=== PATIENT | female | born 1955 | race Caucasian/White ===

== ENCOUNTER 2018-08-30 07:09 | Day surgery (SDC) | payer BC ==
[~2018-08-30 07:09] MED LIST: CEFAZOLIN 2 Gram 2 GM/50 ML BAG IVPB ONE; CELECOXIB 100 MG CAPSULE PO ONE; FAMOTIDINE 20MG TABLET PO ONE; MECLIZINE 25 MG TABLET PO ONE; METOCLOPRAMIDE 10 MG TABLET PO ONE; VANCOMYCIN HCL 1,000 MG in DEXTROSE 5 % IN WATER 250 ML IVPB ONE
[2018-08-30] MEDS ORDERED: DEXAMETHASONE 4 MG/ML 1ML VIAL IVP ONE (07:10)
[2018-08-30] MEDS ORDERED: **ER** KETAMINE HCL 500MG/10ML VIAL IV ONE (07:10)
[2018-08-30] MEDS ORDERED: MIDAZOLAM HCL 2MG/2ML VIAL IV ONE (07:10)
[2018-08-30] MEDS ORDERED: LIDOCAINE 2% MDV (20MG/ML) 20ML VIAL IV ONE (07:10)
[2018-08-30] MEDS ORDERED: BUPIVACAINE 0.5% W/EPI MPF 30 ML VIAL IVP ONE (07:10)
[2018-08-30] MEDS ORDERED: ROPIVACAINE HCL (NAROPIN) /PF 5MG/ML 20ML VIAL IV ONE (07:10)
[2018-08-30] MEDS ORDERED: PROPOFOL 10 MG/ML VIAL IV ONE (07:10)
[2018-08-30] MEDS ORDERED: KETOROLAC 30 MG/ML VIAL IVP ONE (07:10)
[2018-08-30 07:58] LABS: ABO GROUP A; RH TYPE NEGATIVE
[2018-08-30 07:59] LABS: ANTIBODY SCREEN NEGATIVE (NEGATIVE)
[2018-08-30] MEDS ORDERED: ACETAMINOPHEN W/ CODEINE 300MG/60MG TABLET PO PRN ×2 (11:13)
[2018-08-30] MEDS ORDERED: BISACODYL 10 MG SUPP RC PRN (11:13)
[2018-08-30] MEDS ORDERED: NALOXONE 0.4 MG/1 ML VIAL IVP PRN (11:13)
[2018-08-30] MEDS ORDERED: ACETAMINOPHEN 325 MG TAB PO PRN (11:13)
[2018-08-30] MEDS ORDERED: MAGNESIUM HYDROXIDE 30 ML UDC PO PRN (11:13)
[2018-08-30] MEDS ORDERED: AL HYDROX/MAG HYDROX 30ML UD PO PRN (11:13)
[2018-08-30] MEDS ORDERED: DIPHENHYDRAMINE HCL 25 MG CAPSULE PO PRN (11:13)
[2018-08-30] MEDS ORDERED: ZOLPIDEM TARTRATE 5 MG TABLET PO PRN (11:13)
[2018-08-30] MEDS ORDERED: KETOROLAC 30 MG/ML VIAL IVP PRN ×2 (11:13)
[2018-08-30] MEDS ORDERED: TRAMADOL HCL 50 MG TABLET PO PRN (11:13)
[2018-08-30] MEDS: POTASSIUM CHLORIDE/D5-0.9%NACL 20 MEQ/1,000 ML BAG IV SCH ×2 (14:14→23:09)
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
[2018-08-30] MEDS: HYDROCODONE/APAP 10/325 TABLET PO PRN ×3 (15:53→23:08)
[2018-08-30] MEDS: CEFAZOLIN 2 Gram 2 GM/50 ML BAG IVPB SCH (17:34)
[2018-08-30] MEDS: DOCUSATE SODIUM 100 MG CAPSULE PO SCH (21:27)
[2018-08-30] MEDS: BUPROPION HCL 150 MG TAB.SR.12H PO SCH (21:27)
[2018-08-31] MEDS: CEFAZOLIN 2 Gram 2 GM/50 ML BAG IVPB SCH ×2 (00:56→09:25)
[2018-08-31] MEDS: HYDROCODONE/APAP 10/325 TABLET PO PRN ×3 (04:01→11:41)
[2018-08-31] MEDS: PANTOPRAZOLE SODIUM 40 MG TABLET PO SCH (06:04)
[2018-08-31] MEDS: LEVOTHYROXINE SODIUM 88 MCG TABLET PO SCH (06:04)
[2018-08-31 07:05] LABS: HEMATOCRIT 31.9 % (35.0-47.0); HEMOGLOBIN 10.1 gm/dl (11.6-16.0)
[2018-08-31 07:18] LABS: BLOOD UREA NITROGEN 13 mg/dL (8-23); CREATININE 0.6 mg/dL (0.5-0.9); EST GLOMERULAR FILTRATION RATE > 60 mL/min; GLUCOSE,RANDOM 118 mg/dL (74-109)
[2018-08-31] MEDS: POTASSIUM CHLORIDE/D5-0.9%NACL 20 MEQ/1,000 ML BAG IV SCH ×2 (08:45→17:35)
[2018-08-31] MEDS: ASCORBIC ACID 500 MG TAB PO SCH (09:23)
[2018-08-31] MEDS: DOCUSATE SODIUM 100 MG CAPSULE PO SCH ×2 (09:23→22:09)
[2018-08-31] MEDS: FERROUS SULFATE 325 MG TAB PO SCH (09:24)
[2018-08-31] MEDS: CYANOCOBALAMIN (VITAMIN B-12) 100 MCG TABLET PO SCH (09:24)
[2018-08-31] MEDS: BUPROPION HCL 150 MG TAB.SR.12H PO SCH ×2 (09:24→22:10)
[2018-08-31] MEDS: HYDROCHLOROTHIAZIDE 25 MG TABLET PO SCH (09:24)
[2018-08-31] MEDS: FOLIC ACID 1 MG TABLET PO SCH (09:24)
[2018-08-31] MEDS: MULTIVITAMINS/MINERALS TABLET PO SCH (09:24)
[2018-08-31] MEDS ORDERED: RIVAROXABAN 10 MG TABLET PO SCH (10:00)
[2018-08-31] MEDS: ONDANSETRON HCL IV 4 MG/2 ML VIAL IVP PRN ×2 (11:34→17:41)
[2018-08-31] MEDS ORDERED: POTASSIUM CHLORIDE 20 MEQ TABLET PO ONE (13:20)
--- NOTE | 2018-08-31 14:12 | Physical Therapy Tx Note ---
Physical Therapy Tx Note - Treatment Note Physical Therapy Tx Note: Detail (The patient was not seen this pm secondary to medical status. Will hold PT until patient is medicallly cleared.) Physical Therapy Problem List: Detail (1) Decreased R knee AROM 2) Decreased R LE strength) Physical Therapy Goals: 1) The patient will ambulate independently on a flight of stairs with use of railings. 2) The patient will be independent with bed mobility. 3) The patient will be independent with TKA HEP Physical Therapy Plan: PT 1-2 visits for bed mobility, gait training on stairs and instruction in HEP.
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
[2018-08-31] MEDS: HYDROMORPHONE HCL 2 MG/ML VIAL IM PRN (16:02)
[2018-08-31] MEDS: CEPHALEXIN 500 MG CAPSULE PO SCH ×2 (16:03→22:10)
[2018-08-31] MEDS ORDERED: RIVAROXABAN 15 MG TABLET PO ONE (16:45)
[2018-09-01] MEDS: HYDROMORPHONE HCL 2 MG/ML VIAL IM PRN (02:46)
[2018-09-01] MEDS: ONDANSETRON HCL IV 4 MG/2 ML VIAL IVP PRN (02:46)
[2018-09-01] MEDS: PANTOPRAZOLE SODIUM 40 MG TABLET PO SCH (06:22)
[2018-09-01] MEDS: LEVOTHYROXINE SODIUM 88 MCG TABLET PO SCH (06:22)
[2018-09-01 06:58] LABS: HEMATOCRIT 31.8 % (35.0-47.0); HEMOGLOBIN 10.3 gm/dl (11.6-16.0)
[2018-09-01 07:09] LABS: BLOOD UREA NITROGEN 8 mg/dL (8-23); CREATININE 0.6 mg/dL (0.5-0.9); EST GLOMERULAR FILTRATION RATE > 60 mL/min; GLUCOSE,RANDOM 126 mg/dL (74-109)
--- NOTE | 2018-09-01 07:33 | US VENOUS DOPPLER REPORT ---
EXAM: VENOUS DOPPLER ULTRASOUND OF THE RIGHT LOWER EXTREMITY HISTORY: RECENT SURGERY. TECHNIQUE: Sonographic evaluation of the deep venous system of the right lower extremity was performed with the addition of Doppler, compression, and augmentation. FINDINGS: There is a deep vein thrombosis in the right external iliac vein and popliteal vein. The distal lower extremity was not imaged. IMPRESSION: ACUTE DEEP VEIN THROMBOSIS IN THE RIGHT EXTERNAL ILIAC VEIN AND THE POPLITEAL VEIN. THE REMAINDER OF THE VASCULATURE WAS NOT IMAGED. JOB NUMBER: [id number] MTDD
[2018-09-01] MEDS: ASCORBIC ACID 500 MG TAB PO SCH (09:53)
[2018-09-01] MEDS: CEPHALEXIN 500 MG CAPSULE PO SCH (09:53)
[2018-09-01] MEDS: MULTIVITAMINS/MINERALS TABLET PO SCH (09:53)
[2018-09-01] MEDS: HYDROCHLOROTHIAZIDE 25 MG TABLET PO SCH (09:53)
[2018-09-01] MEDS: FOLIC ACID 1 MG TABLET PO SCH (09:54)
[2018-09-01] MEDS: FERROUS SULFATE 325 MG TAB PO SCH (09:54)
[2018-09-01] MEDS: DOCUSATE SODIUM 100 MG CAPSULE PO SCH (09:54)
[2018-09-01] MEDS: CYANOCOBALAMIN (VITAMIN B-12) 100 MCG TABLET PO SCH (09:54)
[2018-09-01] MEDS: BUPROPION HCL 150 MG TAB.SR.12H PO SCH (09:56)
[2018-09-01] MEDS ORDERED: RIVAROXABAN 15 MG TABLET PO SCH (10:00)
--- NOTE | 2018-09-01 14:41 | Physical Therapy Tx Note ---
Physical Therapy Tx Note - Treatment Note Tolerated: Good Total Time Spent With Patient: 30 Physical Therapy Tx Note: Detail (Pt up in chair upon arrival, PolarPak on R knee. Cleared by surgeon for discharge. Sit/stand from chair to front wheeled walker independently. Ambulated w/front wheeled walker from bedside to stairwell by nrsg station (60 feet), descended and ascended 3 steps w/proper technique after verbal review, w/assist only to manage walker. Returned to room (60 feet) w/SBA assist w/front wheeled walker. Independently transferred onto bed, got into bed, and scooted up. Reviewed home exercise program. Applied PolarPak to R knee, placed call light and bedside table in reach.) Physical Therapy Problem List: Detail (1) Decreased R knee AROM 2) Decreased R LE strength) Physical Therapy Goals: 1) The patient will ambulate independently on a flight of stairs with use of railings - partially met, requires SBA/CGA. 2) The patient will be independent with bed mobility - met. 3) The patient will be independent with TKA HEP - met Prognosis: Good Physical Therapy Plan: Pt is discharged from physical therapy at this time, having met all goals sufficiently to safely go home.
--- NOTE | 2018-09-01 21:31 | Operative Note ---
DATE OF SURGERY: 08/30/2018 PREOPERATIVE DIAGNOSIS: END-STAGE ARTHROSIS OF THE RIGHT KNEE. POSTOPERATIVE DIAGNOSIS: END-STAGE ARTHROSIS OF THE RIGHT KNEE. PROCEDURE: Cemented right total knee arthroplasty with [employer]y [employer] Nephew, with a size 5 Oxinium femur Talisha II, a size 4 stemmed tibial baseplate, a 9 mm lipped highly cross-linked tibial insert, and a 35 mm all-plastic patella. STAFF SURGEON: TRUDY BARRERA M.D. ANESTHESIA: SPINAL. PREPARATION: CHLORAPREP. INDIVIDUAL CONSIDERATIONS: NONE. PROCEDURE: The patient was taken to the Operating Room and placed supine on the operating table. She had a successful induction of a spinal anesthetic. Her right lower extremity was prepped and then draped in the usual fashion. The limb was elevated, the tourniquet was inflated to 215 mmHg. The patient had a midline approach to the knee. Sharp dissection carried down through the skin and subcutaneous tissues. Small veins were coagulated with a Bovie. A medial arthrotomy was performed. The patella was everted and the knee was flexed. She had sure-aq-ltdp contact throughout with osteophytes. The fat pad was resected, the ACL was sacrificed, provisional anterior meniscectomies were performed, and the capsule was released from the medial proximal tibia. The initial femoral pilot teacher hole was then made free hand. The intramedullary femoral cutting jig was placed. It was cut in 7.0 degrees of valgus and adjusted for rotation and secured with pins for a 10 mm resection. The initial transverse cut was then made. A skin guide was placed in the anterior and posterior pilot teacher holes. It was found that a size 5 would be appropriate but I did need to translate it anteriorly 2 mm. The anterior and posterior cuts followed by chamfer cuts were made, osteophytes were removed, and a size 5 trial was placed and found to fit well. The tibia was brought forward and the remainder of the meniscal remnants were removed with a Bovie. The extraarticular tibial cutting jig was placed. It was cut in neutral with a 3 degree AP slope. Care was taken to adjust for rotation and flexion using the extraarticular alignment guide and bony landmarks. It was set for a 9 mm resection, keyed off the high lateral side and secured with pins. When cutting the tibia, care was taken to preserve the PCL insertion on the tibia. After removing osteophytes, I could fit a size 4. It was adjusted for rotation and secured with pins. With the size 5 femoral trial and a 9 mm lipped trial, there was excellent motion and stability. Ligamentous balance, rotation and alignment, and patellar tracking were normal. No lateral release was required. The tourniquet was let down briefly to get bleeders posteriorly and then placed back up again. The femoral pilot teacher holes were impacted and the triflange tibial stamp were also impacted. The patient had a thick patella. I took roughly 9 mm of bone off free hand. I was easily able to fit a 35 patella and the three pilot teacher holes were drilled. The knee was then thoroughly irrigated out with pulsatile Betadine and saline to remove any visual or palpable debris. The bony surfaces were then dried. A size 4 stemmed tibial baseplate was cemented into place followed by impaction of the 9 mm lipped tibial insert followed by cementing in the size 5 Oxinium femur followed by cementing in the 35 mm patella. Implant surfaces were compressed, excess cement was removed, and then after the cement had set, there was excellent motion and stability. Ligamentous balance, rotation and alignment, and patellofemoral tracking were normal. No lateral release was required. The tourniquet was let down and hemostasis was obtained with a Bovie. The skin and subcu were infiltrated with 30 mL of 0.5% Marcaine with Epinephrine. I then closed the fascia with a running #2 Quill. The subcu was closed in layers with running #0 Quill. The skin was closed with derian. The patient did receive a gram of tranexamic acid preoperatively. I mixed a gram tranexamic acid with 30 mL of saline and injected it into the knee through a sterile #18 gauge needle and a sterile Bulkee compressive Aquacel-type dressing was applied. The patient tolerated the procedures well. Needle and sponge counts were correct. Estimated blood loss minimal and she was taken back to Recovery in good condition. There were no complications. JOB NUMBER: [id number] [facility]
== END 2018-09-01 13:15 | disposition home or self-care (01) ==
LOC: SUR 07:09 → MEDSURG 11:46 → SUR 09-01 13:15
PROVIDERS: ATTEND Orthopaedic Surgery
DX: M17.11 Unilateral primary osteoarthritis, right knee (principal); M06.9 Rheumatoid arthritis, unspecified; K21.9 Gastro-esophageal reflux disease without esophagitis; E03.9 Hypothyroidism, unspecified; Z85.828 Personal history of other malignant neoplasm of skin
CPT/HCPCS: 27447; 01402; 64447; 85018; 85014; 80048; 86900; 86901; 86850; 93971; J1885 ×2; J2405 ×2; J3370; J3490 ×5; J1170 ×2; J0690 ×2; J2795; G8978; G8979; G8987; G8988; G8989; 76942; 97530; J3480; J7060